=== PATIENT | male | born 1960 | race Caucasian/White ===

== ENCOUNTER → 2019-09-23 12:40 | Outpatient (CLI) | payer OTHER, SELFPAY ==
--- NOTE | 2019-09-23 12:42 | DI.CT.S_ITS ---
PROCEDURE: CT KIDNEY URETER BLADDER (KUB) INDICATIONS: hematuria TECHNIQUE: Noncontrast 5 mm thick sections acquired from the diaphragms to the symphysis. 5 mm thick coronal and sagittal reformats were then performed. For radiation dose reduction, the following was used: automated exposure control, adjustment of mA and/or kV according to patient size. COMPARISON: [facility], CT, KIDNEY/ URETER/BLADDER, 04/01/2015, 16:06. FINDINGS: Image quality: Excellent. Lung bases: Lung bases are clear. Heart size is normal. Urinary system: Both kidneys are normal in size. 2.1 x 0.9 cm stone is seen in right renal collecting system. Additional smaller nonobstructing right renal calculi are seen measures up to 5 mm in size. Nonobstructing left renal calculi are noted measures up to 4 mm in size in midpole of left kidney. No hydronephrosis. No perinephric fat stranding. There is suggestion of 1.8 cm cyst in upper pole of right kidney compared to 1.2 cm in 2016. There is no perinephric fat stranding. Both ureters appear non-dilated throughout their expected courses. There is mild diffuse bladder wall thickening. Enlarged prostate gland with mild mass effect of floor of urinary bladder is noted. No discrete bladder wall mass or calcified bladder stones. Other solid organs: Liver is normal in size. Gallbladder is within normal limits. Pancreas is normal in contours. Spleen is normal in size. No adrenal nodules. Peritoneum and bowel: Unenhanced bowel loops demonstrate normal wall thickness and caliber. No free fluid or air. Appendix is visualized and is within normal limits. Moderate sigmoid diverticulosis is seen, no CT evidence of acute diverticulitis. Nodes and vessels: No retroperitoneal or mesenteric adenopathy by size criteria. Aorta and inferior vena cava are normal in caliber. Abdominal wall: No ventral hernias. Pelvis: No free pelvic fluid. No inguinal hernias or adenopathy. Bones: No suspicious bony lesions. No vertebral body compression fractures. Degenerative disc disease at L3-4 through L5-S1 levels are seen with prominent dorsal disc osteophyte complex formation at L4-5 level causing moderate to severe central canal stenosis. IMPRESSION: 1. Bilateral nonobstructing renal calculi including a 2.1 x 0.9 cm midpole/right renal pelvic stone. No hydronephrosis. Normal appearing bilateral ureters. 2. Suggestion of mild diffuse bladder wall thickening, no discrete bladder wall mass. Enlarged prostate gland with mass effect of floor of urinary bladder. 3. No bowel obstruction. No free fluid or free air. Colonic diverticulosis, no CT evidence of acute diverticulitis. Normal appendix. 4. Degenerative disc disease in lower lumbar spine most prominent at L4-5 level as above. Dictated by: Justin Mtz M.D. on 09/23/2019 at 15:19 Approved by: Justin Mtz M.D. on 09/23/2019 at 15:31
[2019-09-23 15:01] LABS: Prostate Specific Antigen 1.93 ng/mL (0.10-4.00)
== END ==
PROVIDERS: Family Provider Family Medicine; PCP Family Medicine; Referring Provider Family Medicine; Visit Provider Specialist
DX: R31.29 Other microscopic hematuria (principal); N40.1 Benign prostatic hyperplasia with lower urinary tract symptoms; N13.8 Other obstructive and reflux uropathy; N20.0 Calculus of kidney; K57.30 Diverticulosis of large intestine without perforation or abscess without bleeding; M51.36 Other intervertebral disc degeneration, lumbar region
CPT/HCPCS: 36415; 74176; 84153

== ENCOUNTER → 2019-10-01 11:35 | Outpatient (CLI) | payer OTHER, SELFPAY ==
--- NOTE | 2019-10-01 11:37 | DI.RAD.S_ITS ---
PROCEDURE: XR KUB INDICATIONS: Kidney stone TECHNIQUE: One view of the abdomen acquired. COMPARISON: [facility], CT, CT KIDNEY URETER BLADDER (KUB), 09/23/2019, 13:12. FINDINGS: Surgical changes and devices: None. Bowel: Bowel gas pattern is normal. Soft tissues: Several calcifications projected over the right kidney, largest of which measures roughly 2.1 cm projected over the right renal pelvis. There are several small punctate calcifications projected over the left kidney as was seen on prior CT scan. Bones: No suspicious bony lesions. IMPRESSION: Bilateral renal calcifications, largest of which is on the right measuring up to 2.1 cm which appears similar to prior CT scan dated 09/23/2019. Dictated by: Salo Moran RR Interpreted: Tamara Guzmán MD on 10/01/2019 at 16:44 Approved by: Tamara Guzmán M.D. on 10/01/2019 at 18:04
== END ==
PROVIDERS: Family Provider Family Medicine; PCP Family Medicine; Referring Provider Specialist; Visit Provider Specialist
DX: N20.0 Calculus of kidney (principal); N13.5 Crossing vessel and stricture of ureter without hydronephrosis; Z87.442 Personal history of urinary calculi
CPT/HCPCS: 51798; 74018; 81002

== ENCOUNTER → 2019-10-01 14:55 | Outpatient (CLI) | payer OTHER, SELFPAY ==
[2019-10-02 21:07] LABS: COVID19 Sendout Not Detected (Not Detect)
== END ==
PROVIDERS: Family Provider Family Medicine; PCP Family Medicine; Visit Provider Physician Assistant
DX: Z11.59 Encounter for screening for other viral diseases (principal)
CPT/HCPCS: 87635

== ENCOUNTER 2019-10-04 11:10 | Day surgery (SDC) | payer OTHER, SELFPAY ==
[2019-10-01 12:49] VITALS: BMI 24.9
[2019-10-04] VITALS (12 sets, daily range): BP systolic 139–187; BP diastolic 75–103; PULSE 46–76; RESP 10–20; TEMP 36.3–37.1; O2SAT 99–100; BMI 23.8
[2019-10-04] MEDS: LACTATED RINGERS 1,000 ML 42 ML IV ×2 (11:50→17:19)
--- NOTE | 2019-10-04 13:08 | PM.PREOP ---
Pre-operative Note Interval Note History & Physical reviewed/Exam performed by Physician: Yes Changes to H&P: No
[2019-10-04] MEDS: CIPROFLOXACIN 400 MG/200 ML PIGGYBACK 200 MG IV (13:15)
--- NOTE | 2019-10-04 13:35 | SUR.OPER ---
Addendum entered by Jason Torres R.N. 10/04/19 13:36: On ESWL jonny price Original Note: Lithotomy on padded OR bed, head on pillow, arms secured on padded arm boards at <90 degrees abduction. Legs secured in padded yellow fins stirrups.
--- NOTE | 2019-10-04 14:12 | P.OP_ITS ---
Operative Date/Time/Diagnoses Date of procedure: 10/04/19 Time of procedure: 14:12 Pre-op diagnosis: 1. Right nephrolithiasis 2. Right renal colic Post-op diagnosis: same Procedure & Clinicians Procedure: 1. Cystoscopy and placement right ureteral stent (7 Guyanese by 22-32 cm multi-length). 2. Right extracorporeal shockwave lithotripsy (see maximal power level 7.0 x 2500 shocks). Same procedure as scheduled: Yes Indications: 1. Right nephrolithiasis 2. Right renal colic Surgeon: Larry Elizabeth Click Yes if Unassisted: Yes Anesthesia Type: General Operative Notes Findings: Large right renal stone burden as depicted on preoperative imaging. Urethra-normal External sphincter-coapted Prostate-3.5-4 cm length with moderate trilobar hyperplasia Bladder-1+ trabeculation. Normal orifices bilaterally. No stone tumor foreign body visualized. Following instrumentation of the right upper collecting system and obstructive E flux was visualized from the right ureteral orifice. Closure Type: not applicable Specimen(s): none sent Applied: other (Seven Guyanese by 22-32 cm multi-length stent.) Estimated Blood Loss (mL): 0 Blood products transfused: none Tourniquet time (min): 0 Procedure in detail: The patient was positioned supine and was administered general anesthesia. He was then repositioned in the semi lithotomy the lower abdomen genitalia and groin were then prepped and draped in sterile fashion. Twenty-two Guyanese panendoscope was then passed lower urinary tract with the findings as described above. Next, a 0.35 guidewire was advanced of the right upper collecting system under direct and fluoroscopic guidance. Now a 7 Guyanese by 22-32 cm multi-length stent was advanced over the guidewire, again under direct and fluoroscopic guidance. And was positioned satisfactorily in the right collecting system. The above index calculi were localized in the X, Y, and Z planes. Lithotripsy was commenced at minimal power level for total of 200 shocks. A 2 minutes pause was then conducted. Lithotripsy was then resumed and power level was gradually increased to a maximum of 7.0. At conclusion of the treatment there was excellent radiographic evidence of stone fragmentation. The patient was then repositioned supine, awakened, and transferred for to a gurney and transported to recovery room. Complications: none Post-operative Condition: stable Disposition: PACU Plan for aftercare: Home
[2019-10-04] MEDS: FUROSEMIDE 40 MG/4 ML VIAL 20 MG IV (14:36)
[2019-10-04] MEDS: fentaNYL 100 MCG/2 ML INJ IV ×2 (14:42→14:53)
[2019-10-04] MEDS: HYDROCODONE/ACET 5/325 TABLET 1 TAB PO ×2 (14:44→17:13)
--- NOTE | 2019-10-04 15:11 | SUR.PHASEI ---
Patient unable to void lying down (had turned to left side per request of Dr. Elizabeth). Pt denies any dizziness; assisted to standing at bedside with2 RN standby. Continues to attempt to void. States that his pain level is better. He has tolerated PO food and medication well. Alert, oriented, pleasant.
--- NOTE | 2019-10-04 15:22 | SUR.PHASEI ---
Pt states that he has had difficulty starting to void since the onset of kidney stones. States that he'd be able to void if standing in the bathroom. Bladder scanned for 477ml. Dr. Elizabeth informed that we may need too catheterize the patient. Took pt to [facility] to attempt to void. Reported to Chidi Wells RN
--- NOTE | 2019-10-04 15:52 | SUR.PHASEII ---
Patient unable to void after procedure. Straight cath ordered by Dr Elizabeth and if patient is still unable to void after a straight cath procedure, patient will need to go home with an indwelling mayer and leg bag. Patient verbalizes understanding and is in agreement. Patient attempting a second time to void.
--- NOTE | 2019-10-04 16:59 | SUR.PHASEII ---
Urojet given to patient to minimize discomfort prior to straight cath. Straight cath done using sterile technique on one attempt. Tolerated well. Emptied 600 mls of bloody urine to bag without difficulty. No blood clots appreciated. Patient feels better immediately after straight cath procedure. Bladder scan 103 mls after catherization. Advised Dr Elizabeth of post cath residual. Per Dr Elizabeth, allow patient time to void on his own, and if unsuccessful, patient will need to have an indwelling mayer placed that will remain for the weekend until he can be seen in the office next week. Patient and partner verbalizes understanding. Report given to receiving nurse, River Carter
--- NOTE | 2019-10-04 17:06 | SUR.PHASEII ---
Per Dr Elizabeth, infuse remaining Lactated ringers and if patient has 400 mls or greater in his bladder after repeat bladder scan, insert mayer catheter and send patient home with large collection and small leg bag. V/U.
[2019-10-04] MEDS: ONDANSETRON 4 MG/2 ML INJ IV (17:13)
--- NOTE | 2019-10-04 17:50 | SUR.PHASEII ---
Patient up to the bathroom. Unable to void. Bladder scan showed 348mls.
--- NOTE | 2019-10-04 19:15 | SUR.PHASEII ---
IV bag infused. Patient attempted to void again but was unsuccessful. Patient c/o increased bladder discomfort. Bladder scan showed 350mls. Mayer placed per order from Dr. Elizabeth to TERRANCE Barlow and patient discomfort, with sterile technique. Dark, thick red fluid drained from mayer. Mayer teaching and leg bag instructions given verbally and written. Patient expressed desire to discharge.
== END 2019-10-04 19:00 | disposition home or self-care (01) ==
PROVIDERS: PCP Family Medicine; Referring Provider Specialist; Visit Provider Specialist
PROC: (CPT 50590; principal; 2019-10-04 12:45)
DX: N20.0 Calculus of kidney (principal); I10 Essential (primary) hypertension; B20 Human immunodeficiency virus [HIV] disease
CPT/HCPCS: 50590; 52332; J0744; J1940; J2250; J2405; J2704; J3010

== ENCOUNTER → 2019-10-21 11:10 | Outpatient (CLI) | payer OTHER, SELFPAY | PROVIDERS: PCP Family Medicine; Visit Provider Specialist | DX: N39.0 Urinary tract infection, site not specified (principal); Z46.6 Encounter for fitting and adjustment of urinary device; Z48.89 Encounter for other specified surgical aftercare | CPT/HCPCS: 52310; 81002; 87086 ==

== ENCOUNTER → 2019-12-23 09:34 | Outpatient (CLI) | payer OTHER, SELFPAY ==
--- NOTE | 2019-12-23 10:05 | DI.RAD.S_ITS ---
PROCEDURE: XR KUB INDICATIONS: kidney stone TECHNIQUE: One view of the abdomen acquired. COMPARISON: [facility], ABDOMEN ACUTE SERIES, 06/22/2012, 15:08. [facility], CR, XR KUB, 10/01/2019, 11:34. FINDINGS: Surgical changes and devices: None. Bowel: Bowel gas pattern is normal. Soft tissues: No suspicious abdominal calcifications can be seen but the calculus present on the right within the renal pelvis was measured at 255 Hounsfield units, low in radiodensity. Visualized solid organ contours appear normal in size. Bones: No suspicious bony lesions. IMPRESSION: The calculus within the renal pelvis on the right seen by CT scanning 09/23/19 was radiolucent, at approximately 255 Hounsfield units, and therefore the absence of clear visualization of this structure on current plain film imaging does not exclude the possibility of it remaining. Ultrasound may be warranted for more accurate assessment. Dictated by: Raudel Dubois M.D. on 12/23/2019 at 10:56 Approved by: Raudel Dubois M.D. on 12/23/2019 at 10:58
[2019-12-23 10:36] LABS: Appearance Urine UA CLEAR; Bilirubin Urine UA NEGATIVE (NEGATIVE); Color Urine UA YELLOW; Glucose Urine UA NEGATIVE (Negative); Ketones Urine UA NEGATIVE (NEGATIVE); Leukocyte Esterase Urine UA NEGATIVE (NEGATIVE); Nitrite Urine UA NEGATIVE (Negative); Occult Blood Urine UA NEGATIVE (Negative); Protein Urine UA TRACE (Negative); Specific Gravity Urine UA 1.025 (1.000-1.035); Urobilinogen Urine UA 0.2 E.U./dL (0.2); pH Urine UA 5.5 (4.5-8.0)
[2019-12-23 10:54] LABS: Calcium 9.5 mg/dL (8.4-10.2); Uric Acid 4.5 mg/dL (3.5-8.5)
[2019-12-24 14:38] LABS: Parathyroid Hormone Int 34 pg/mL (15-65)
[2019-12-31 14:25] LABS: Stone Analysis Source NOT PROVIDED
[2019-12-31 14:26] LABS: Size 3X3
[2019-12-31 14:27] LABS: Ca oxalate dihydrate 60; Ca oxalate monohydr 35; Hydroxyapatite 5
== END ==
PROVIDERS: PCP Family Medicine; Referring Provider Specialist; Visit Provider Specialist
DX: N20.0 Calculus of kidney (principal); N39.0 Urinary tract infection, site not specified
CPT/HCPCS: 74018; 81003; 82310; 82365; 83970; 84550

== ENCOUNTER → 2020-10-21 09:36 | Outpatient (CLI) | payer OTHER, SELFPAY ==
--- NOTE | 2020-10-21 | DI.CT.S_ITS ---
PROCEDURE: CT ABDOMEN PELVIS WO CON INDICATIONS: Calculus of kidney right flank pain TECHNIQUE: Noncontrast 5 mm thick sections acquired from the diaphragms to the symphysis. 5 mm coronal and sagittal reformats were then performed. For radiation dose reduction, the following was used: automated exposure control, adjustment of mA and/or kV according to patient size. COMPARISON: [facility], CT, CT KIDNEY URETER BLADDER (KUB), 09/23/2019, 13:12. FINDINGS: Image quality: Excellent. ABDOMEN: Lung bases: Lung bases are clear. Heart size is normal. Solid organs: Liver is normal in size. Gallbladder is unremarkable . Pancreas is normal in contours. Spleen is normal in size. No adrenal nodules. Right kidney: Interval removal of a large right renal pelvic stone and right lower pole calyceal stones. Approximately 4 or 5 tiny residual calyceal stones remain. No hydronephrosis. Right ureter: Unremarkable. No ureteral stone. Left kidney: Unchanged. Multiple small nonobstructing stones. No hydronephrosis. Left ureter: No hydroureter. Peritoneum and bowel: Unenhanced bowel loops demonstrate normal wall thickness and caliber. No free fluid or air. Sigmoid diverticulosis. Nodes and vessels: No retroperitoneal or mesenteric adenopathy by size criteria. Aorta and inferior vena cava are normal in caliber. Miscellaneous: No ventral hernias. PELVIS: Genitourinary: Bladder is decompressed. Mild diffuse bladder wall thickening. Prostate enlargement. Miscellaneous: No inguinal hernias or adenopathy. Bones: No suspicious bony lesions. No vertebral body compression fractures. Lumbar degenerative change. Prominent peripherally calcified disc protrusion at L4-L5 with associated canal stenosis. IMPRESSION: 1. Significant interval improvement in the appearance of the right kidney. The large renal pelvic stone and the large lower calyceal stone have been removed. Multiple tiny nonobstructing right renal stones without hydronephrosis. 2. Multiple nonobstructing small left renal stones. 3. Sigmoid diverticulosis. 4. A peripherally calcified disc protrusion at L4-L5 resulting canal stenosis. 5. Mild diffuse bladder wall thickening, enlarged prostate. Dictated by: Ru Rogers M.D. on 10/21/2020 at 12:05 Approved by: Ru Rogers M.D. on 10/21/2020 at 12:11
== END ==
PROVIDERS: PCP Family Medicine; Referring Provider Family Medicine; Visit Provider Family Medicine
DX: N20.0 Calculus of kidney (principal); R10.9 Unspecified abdominal pain; K57.30 Diverticulosis of large intestine without perforation or abscess without bleeding; N40.0 Benign prostatic hyperplasia without lower urinary tract symptoms; M51.26 Other intervertebral disc displacement, lumbar region; M48.061 Spinal stenosis, lumbar region without neurogenic claudication
CPT/HCPCS: 74176

== ENCOUNTER → 2020-11-21 10:56 | Outpatient (CLI) | payer OTHER, SELFPAY ==
--- NOTE | 2020-11-21 10:57 | DI.MRI.S_ITS ---
PROCEDURE: MR LUMBAR SPINE WO CON INDICATIONS: Spinal stenosis, lumbar region with neurogenic cla TECHNIQUE: Noncontrast sagittal T1 spin echo and T2 fast echo, sagittal STIR, axial T1 and T2 fast spin echo through the lumbar spine. In cases with scoliosis, additional coronal T2 fast spin echo may be performed. COMPARISON: None. FINDINGS: Image quality: Excellent. Alignment and Curvature: There is normal bony alignment. Bone Marrow: Marrow is of normal overall signal. Minimal reactive endplate changes are present at L4-5. No acute vertebral body compression fractures. Spinal Cord: Conus medullaris terminates at the L1 level. Visualized cord demonstrates normal signal and size. Paraspinous Soft Tissues: No paravertebral masses. Increased T2 signal is present within the right kidney most consistent with a simple cyst. Discs: Severe desiccation is present L4-5, moderate to severe throughout the remainder of the lumbar spine. L1-L2: No disc bulge, spinal stenosis or foraminal narrowing. L2-L3: Mild disc bulge without spinal stenosis. Minimal to mild left and minimal right foraminal narrowing with facet and ligamentum flavum hypertrophy. L3-L4: Mild disc bulge with mild spinal stenosis. Moderate bilateral foraminal narrowing with facet and ligamentum flavum hypertrophy. L4-L5: Mild disc bulge with large superimposed posterior central protrusion with severe spinal stenosis and canal compression. Severe left and moderate to severe right foraminal narrowing with prominent facet and ligamentum flavum hypertrophy. L5-S1: Mild disc bulge including a right foraminal component. No spinal stenosis. [id number] bilateral foraminal narrowing with facet hypertrophy. IMPRESSION: 1. Disc bulge with large posterior central protrusion at L4-5 causing severe spinal stenosis and canal compression. 2. Multilevel foraminal narrowing most severe at L4-5 secondary to facet and ligamentum flavum arthropathy. Dictated by: Tamara Guzmán M.D. on 11/23/2020 at 11:03 Approved by: Tamara Guzmán M.D. on 11/23/2020 at 11:09
== END ==
PROVIDERS: PCP Family Medicine; Referring Provider Family Medicine; Visit Provider Family Medicine
DX: M48.062 Spinal stenosis, lumbar region with neurogenic claudication (principal); M51.26 Other intervertebral disc displacement, lumbar region
CPT/HCPCS: 72148

== ENCOUNTER → 2021-07-26 08:05 | Outpatient (CLI) | payer OTHER, SELFPAY ==
[2021-07-26 19:27] LABS: Add Manual Diff / Slide Review NO; Basophils Absolute Auto 0 /uL (0-100); Basophils Percent Auto 0.6 % (0-2); Eosinophils Absolute Auto 400 /uL (0-450); Eosinophils Percent Auto 5.4 % (2-4); Hemoglobin 13.7 g/dL (13.5-17.5); Lymphocytes Absolute Auto 2100 /uL (1100-4500); Lymphocytes Percent Auto 30.4 % (25-40); Mean Corpuscular HGB Conc 34.3 % (30-36); Mean Corpuscular Hemoglobin 34.2 PG (26-34); Mean Corpuscular Volume 99.7 fL (80-100); Monocytes Absolute Auto 600 /uL (0-900); Monocytes Percent Auto 8.8 % (3-14); Neutrophils Absolute Auto 3800 /uL (1500-7000); Neutrophils Percent Auto 54.8 % (50-75); Platelet Count 227 X10^3/uL (150-400); Red Blood Cell Count 4.01 X10^6/uL (4.5-5.9); White Blood Cell Count 6.9 X10^3/uL (4.5-11.0)
[2021-07-26 19:35] LABS: Alanine Aminotransferase 13 IU/L (<50); Albumin 4.3 g/dL (3.5-5.0); Albumin Globulin Ratio 1.4 (1.0-2.8); Alkaline Phosphatase 67 U/L (38-126); Aspartate Aminotransferase 20 IU/L (17-59); BUN Creatinine Ratio 25.6 (6-22); Bilirubin Total 0.6 mg/dL (0.2-1.3); Blood Urea Nitrogen 20 mg/dL (9-20); Calcium 9.3 mg/dL (8.4-10.2); Carbon Dioxide 28 mmol/L (22-32); Chloride 102 mmol/L (98-107); Cholesterol 234 mg/dL (140-199); Estimated Glomerular Filt Rate > 60 mL/min (>60); Glucose 119 mg/dL (70-100); HDL Cholesterol 54 mg/dL (40-60); HEMOLYSIS < 15 (0-50); LDL Cholesterol Calculated 154 mg/dL (<100); Potassium 4.3 mmol/L (3.4-5.1); Sodium 138 mmol/L (137-145); Total Protein 7.3 g/dL (6.3-8.2); Triglycerides 128 mg/dL (35-150)
[2021-07-27 16:04] LABS: Absolute CD 4 Helper 697 /uL (359-1519); Eosinophils 5 % (Not Estab.); Eosinophils (Absolute) 0.4 x10E3/uL (0.0-0.4); Hemacrit 25.3 % (37.5-51.0); Hemoglobin 8.8 g/dL (13.0-17.7); Immature Granulocytes 0 % (Not Estab.); Lymphocytes 25 % (Not Estab.); Lymphocytes (Absolute) 1.9 x10E3/uL (0.7-3.1); MCHC 34.6 pg (26.6-33.0); MCHC 34.8 g/dL (31.5-35.7); MCV 100 fL (79-97); Monocytes 10 % (Not Estab.); Monocytes (Absolute) 0.8 x10E3/uL (0.1-0.9); Neutrophils 60 % (Not Estab.); Neutrophils (Absolute) 4.5 x10E3/uL (1.4-7.0); Percent CD 4 Pos Lymph 36.7 % (30.8-58.5); Platelets 315 x10E3/uL (150-450); RDW 12.6 % (11.6-15.4); Red Blood Cells 2.54 x10E6/uL (4.14-5.80); White Blood Cells 7.6 x10E3/uL (3.4-10.8)
[2021-07-29 00:08] LABS: HIV-1 RNA by PCR <40 copies/mL (.)
== END ==
PROVIDERS: PCP Family Medicine; Visit Provider Family Medicine
DX: B20 Human immunodeficiency virus [HIV] disease (principal); I10 Essential (primary) hypertension; K92.1 Melena; M48.061 Spinal stenosis, lumbar region without neurogenic claudication; R00.1 Bradycardia, unspecified
CPT/HCPCS: 80053; 80061; 85025; 86361; 87536

== ENCOUNTER → 2021-07-29 13:43 | Outpatient (CLI) | payer OTHER, SELFPAY ==
[2021-07-29 18:39] LABS: Add Manual Diff / Slide Review NO; Basophils Absolute Auto 0 /uL (0-100); Basophils Percent Auto 0.5 % (0-2); Eosinophils Absolute Auto 300 /uL (0-450); Eosinophils Percent Auto 3.1 % (2-4); Hematocrit 37.6 % (41-53); Hemoglobin 13.1 g/dL (13.5-17.5); Lymphocytes Absolute Auto 2400 /uL (1100-4500); Lymphocytes Percent Auto 28.5 % (25-40); Mean Corpuscular HGB Conc 34.8 % (30-36); Mean Corpuscular Hemoglobin 34.6 PG (26-34); Mean Corpuscular Volume 99.4 fL (80-100); Monocytes Absolute Auto 600 /uL (0-900); Monocytes Percent Auto 7.5 % (3-14); Neutrophils Absolute Auto 5000 /uL (1500-7000); Neutrophils Percent Auto 60.4 % (50-75); Platelet Count 217 X10^3/uL (150-400); Red Blood Cell Count 3.78 X10^6/uL (4.5-5.9); Red Cell Distribution Width 13.4 % (11.6-14.8); White Blood Cell Count 8.3 X10^3/uL (4.5-11.0)
[2021-07-29 18:41] LABS: HEMOLYSIS < 15 (0-50); Iron 78 ug/dL (49-181)
[2021-07-29 18:46] LABS: Alanine Aminotransferase 13 IU/L (<50); Albumin 4.4 g/dL (3.5-5.0); Albumin Globulin Ratio 1.7 (1.0-2.8); Alkaline Phosphatase 67 U/L (38-126); Aspartate Aminotransferase 20 IU/L (17-59); BUN Creatinine Ratio 29.3 (6-22); Bilirubin Total 0.4 mg/dL (0.2-1.3); Blood Urea Nitrogen 29 mg/dL (9-20); Calcium 9.4 mg/dL (8.4-10.2); Carbon Dioxide 29 mmol/L (22-32); Chloride 103 mmol/L (98-107); Estimated Glomerular Filt Rate > 60 mL/min (>60); Globulin 2.6 g/dL (1.7-4.1); Glucose 101 mg/dL (70-100); HEMOLYSIS < 15 (0-50); Sodium 138 mmol/L (137-145)
[2021-07-29 18:53] LABS: Percent Iron Saturation 25 % (20-50); Total Iron Binding Capacity 307 ug/dL (261-462); Transferrin 236 mg/dL (206-381)
[2021-07-29 19:17] LABS: Ferritin 33 ng/mL (18-464)
[2021-07-29 19:31] LABS: Vitamin B12 > 1000 pg/mL (239-931)
== END ==
PROVIDERS: PCP Family Medicine; Visit Provider Family Medicine
DX: D64.9 Anemia, unspecified (principal); K92.1 Melena
CPT/HCPCS: 80053; 82607; 82728; 83540; 83550; 85025

== ENCOUNTER → 2021-09-15 09:26 | Outpatient (CLI) | payer OTHER, SELFPAY ==
[2021-09-15 20:43] LABS: Add Manual Diff / Slide Review NO; Basophils Absolute Auto 0 /uL (0-100); Basophils Percent Auto 0.3 % (0-2); Eosinophils Absolute Auto 300 /uL (0-450); Eosinophils Percent Auto 4.3 % (2-4); Hematocrit 37.9 % (41-53); Hemoglobin 13.1 g/dL (13.5-17.5); Lymphocytes Absolute Auto 2000 /uL (1100-4500); Lymphocytes Percent Auto 27.6 % (25-40); Mean Corpuscular HGB Conc 34.7 % (30-36); Mean Corpuscular Volume 101.1 fL (80-100); Monocytes Absolute Auto 700 /uL (0-900); Monocytes Percent Auto 9.2 % (3-14); Neutrophils Absolute Auto 4100 /uL (1500-7000); Neutrophils Percent Auto 58.6 % (50-75); Platelet Count 181 X10^3/uL (150-400); Red Blood Cell Count 3.75 X10^6/uL (4.5-5.9); Red Cell Distribution Width 13.1 % (11.6-14.8); White Blood Cell Count 7.1 X10^3/uL (4.5-11.0)
[2021-09-15 20:45] LABS: HEMOLYSIS < 15 (0-50); Iron 139 ug/dL (49-181)
[2021-09-15 20:49] LABS: HEMOLYSIS < 15 (0-50); Potassium 4.3 mmol/L (3.4-5.1)
[2021-09-15 20:50] LABS: Alanine Aminotransferase 13 IU/L (<50); Albumin 4.2 g/dL (3.5-5.0); Albumin Globulin Ratio 1.6 (1.0-2.8); Alkaline Phosphatase 65 U/L (38-126); Aspartate Aminotransferase 21 IU/L (17-59); BUN Creatinine Ratio 27.5 (6-22); Bilirubin Total 0.5 mg/dL (0.2-1.3); Blood Urea Nitrogen 22 mg/dL (9-20); Calcium 9.2 mg/dL (8.4-10.2); Carbon Dioxide 31 mmol/L (22-32); Chloride 101 mmol/L (98-107); Cholesterol 249 mg/dL (140-199); Estimated Glomerular Filt Rate > 60 mL/min (>60); Globulin 2.6 g/dL (1.7-4.1); Glucose 106 mg/dL (70-100); HDL Cholesterol 52 mg/dL (40-60); LDL Cholesterol Calculated 167 mg/dL (<100); Sodium 137 mmol/L (137-145); Total Protein 6.8 g/dL (6.3-8.2); Triglycerides 151 mg/dL (35-150)
[2021-09-15 20:58] LABS: Percent Iron Saturation 44 % (20-50); Total Iron Binding Capacity 316 ug/dL (261-462); Transferrin 248 mg/dL (206-381)
== END ==
PROVIDERS: PCP Family Medicine; Visit Provider Family Medicine
DX: D64.9 Anemia, unspecified (principal); E78.2 Mixed hyperlipidemia
CPT/HCPCS: 80053; 80061; 83540; 83550; 85025

== ENCOUNTER → 2021-12-21 11:25 | Outpatient (CLI) | payer OTHER, SELFPAY ==
[2021-12-21 19:37] LABS: Alanine Aminotransferase 15 IU/L (<50); Albumin 4.8 g/dL (3.5-5.0); Albumin Globulin Ratio 1.6 (1.0-2.8); Alkaline Phosphatase 64 U/L (38-126); Aspartate Aminotransferase 19 IU/L (17-59); BUN Creatinine Ratio 33.7 (6-22); Bilirubin Total 0.7 mg/dL (0.2-1.3); Blood Urea Nitrogen 29 mg/dL (9-20); Calcium 9.7 mg/dL (8.4-10.2); Carbon Dioxide 28 mmol/L (22-32); Chloride 100 mmol/L (98-107); Cholesterol 188 mg/dL (140-199); Estimated Glomerular Filt Rate > 60 mL/min (>60); Glucose 116 mg/dL (70-100); HDL Cholesterol 40 mg/dL (40-60); HEMOLYSIS < 15 (0-50); LDL Cholesterol Calculated 123 mg/dL (<100); Potassium 4.8 mmol/L (3.4-5.1); Sodium 138 mmol/L (137-145); Total Protein 7.8 g/dL (6.3-8.2); Triglycerides 126 mg/dL (35-150)
== END ==
PROVIDERS: PCP Family Medicine; Visit Provider Family Medicine
DX: D64.9 Anemia, unspecified (principal); E78.2 Mixed hyperlipidemia; M48.062 Spinal stenosis, lumbar region with neurogenic claudication
CPT/HCPCS: 80053; 80061

== ENCOUNTER → 2022-03-14 09:49 | Outpatient (CLI) | payer OTHER, SELFPAY ==
[2022-03-14 20:23] LABS: Add Manual Diff / Slide Review NO; Basophils Absolute Auto 0 /uL (0-100); Basophils Percent Auto 0.6 % (0-2); Eosinophils Absolute Auto 300 /uL (0-450); Eosinophils Percent Auto 4.3 % (2-4); Hemoglobin 13.9 g/dL (13.5-17.5); Lymphocytes Absolute Auto 1900 /uL (1100-4500); Mean Corpuscular HGB Conc 34.9 % (30-36); Mean Corpuscular Hemoglobin 35.4 PG (26-34); Mean Corpuscular Volume 101.7 fL (80-100); Monocytes Absolute Auto 600 /uL (0-900); Monocytes Percent Auto 8.5 % (3-14); Neutrophils Absolute Auto 4300 /uL (1500-7000); Neutrophils Percent Auto 60.6 % (50-75); Platelet Count 170 X10^3/uL (150-400); Red Blood Cell Count 3.93 X10^6/uL (4.5-5.9); Red Cell Distribution Width 12.4 % (11.6-14.8); White Blood Cell Count 7.1 X10^3/uL (4.5-11.0)
[2022-03-14 20:32] LABS: Alanine Aminotransferase 15 IU/L (<50); Albumin 4.3 g/dL (3.5-5.0); Albumin Globulin Ratio 1.4 (1.0-2.8); Alkaline Phosphatase 72 U/L (38-126); Aspartate Aminotransferase 23 IU/L (17-59); BUN Creatinine Ratio 26.3 (6-22); Bilirubin Total 0.7 mg/dL (0.2-1.3); Blood Urea Nitrogen 21 mg/dL (9-20); Calcium 9.7 mg/dL (8.4-10.2); Carbon Dioxide 29 mmol/L (22-32); Chloride 98 mmol/L (98-107); Estimated Glomerular Filt Rate > 60 mL/min (>60); Globulin 3.1 g/dL (1.7-4.1); Glucose 108 mg/dL (70-100); HEMOLYSIS 19 (0-50); Hemoglobin A1C% w Est Avg Glu 5.4 % (4.0-6.0); Potassium 5.1 mmol/L (3.4-5.1); Sodium 136 mmol/L (137-145); Total Protein 7.4 g/dL (6.3-8.2)
[2022-03-14 22:47] LABS: HEMOLYSIS < 15 (0-50); Iron 144 ug/dL (49-181)
[2022-03-14 22:55] LABS: Transferrin 259 mg/dL (206-381)
[2022-03-16 14:58] LABS: Percent Iron Saturation 43 % (20-50); Total Iron Binding Capacity 337 ug/dL (261-462)
== END ==
PROVIDERS: PCP Family Medicine; Visit Provider Family Medicine
DX: D64.9 Anemia, unspecified (principal); E78.2 Mixed hyperlipidemia; R73.9 Hyperglycemia, unspecified
CPT/HCPCS: 80053; 83036; 83540; 83550; 85025

== ENCOUNTER → 2022-12-13 11:11 | Outpatient (CLI) | payer OTHER, SELFPAY ==
[2022-12-13 19:15] LABS: Add Manual Diff / Slide Review NO; Basophils Absolute Auto 0 /uL (0-100); Basophils Percent Auto 0.6 % (0-2); Eosinophils Absolute Auto 200 /uL (0-450); Eosinophils Percent Auto 2.6 % (2-4); Hematocrit 39.5 % (41-53); Hemoglobin 13.6 g/dL (13.5-17.5); Lymphocytes Absolute Auto 1700 /uL (1100-4500); Lymphocytes Percent Auto 23.9 % (25-40); Mean Corpuscular HGB Conc 34.5 % (30-36); Mean Corpuscular Hemoglobin 34.3 PG (26-34); Mean Corpuscular Volume 99.4 fL (80-100); Monocytes Absolute Auto 500 /uL (0-900); Monocytes Percent Auto 7.6 % (3-14); Neutrophils Absolute Auto 4600 /uL (1500-7000); Neutrophils Percent Auto 65.3 % (50-75); Platelet Count 198 X10^3/uL (150-400); Red Blood Cell Count 3.97 X10^6/uL (4.5-5.9); Red Cell Distribution Width 12.3 % (11.6-14.8); White Blood Cell Count 7.1 X10^3/uL (4.5-11.0)
[2022-12-13 19:24] LABS: Alanine Aminotransferase 18 IU/L (<50); Albumin 4.2 g/dL (3.5-5.0); Albumin Globulin Ratio 1.4 (1.0-2.8); Alkaline Phosphatase 61 U/L (38-126); Aspartate Aminotransferase 21 IU/L (17-59); BUN Creatinine Ratio 28.2 (6-22); Bilirubin Total 0.5 mg/dL (0.2-1.3); Blood Urea Nitrogen 22 mg/dL (9-20); Calcium 9.5 mg/dL (8.4-10.2); Carbon Dioxide 32 mmol/L (22-32); Chloride 99 mmol/L (98-107); Estimated Glomerular Filt Rate > 60 mL/min (>60); Glucose 104 mg/dL (80-110); HEMOLYSIS < 15 (0-50); Potassium 4.9 mmol/L (3.4-5.1); Sodium 138 mmol/L (137-145); Total Protein 7.2 g/dL (6.3-8.2)
[2022-12-13 19:26] LABS: Hemoglobin A1C% w Est Avg Glu 5.2 % (4.0-6.0)
[2022-12-13 19:55] LABS: TSH w/ Reflex to FT4 0.67 uIU/mL (0.47-4.68)
[2022-12-15 15:39] LABS: HIV 1 & 2 Ab/Ag 4th Gen Combo REACTIVE (NEGATIVE)
[2022-12-15 18:38] LABS: Absolute CD 4 Helper 644 /uL (359-1519); Eosinophils 2 % (Not Estab.); Eosinophils (Absolute) 0.1 x10E3/uL (0.0-0.4); Hemacrit 41.9 % (37.5-51.0); Hemoglobin 13.8 g/dL (13.0-17.7); Immature Granulocytes 1 % (Not Estab.); Lymphocytes 26 % (Not Estab.); Lymphocytes (Absolute) 1.9 x10E3/uL (0.7-3.1); MCHC 32.9 g/dL (31.5-35.7); MCHC 33.7 pg (26.6-33.0); MCV 102 fL (79-97); Monocytes 8 % (Not Estab.); Monocytes (Absolute) 0.6 x10E3/uL (0.1-0.9); Neutrophils 63 % (Not Estab.); Neutrophils (Absolute) 4.7 x10E3/uL (1.4-7.0); Percent CD 4 Pos Lymph 33.9 % (30.8-58.5); Platelets 209 x10E3/uL (150-450); RDW 11.4 % (11.6-15.4); White Blood Cells 7.4 x10E3/uL (3.4-10.8)
[2022-12-20 05:12] LABS: HIV 1 RNA Non Reactive (Non Reactive); HIV 2 RNA Non Reactive (Non Reactive)
== END ==
PROVIDERS: PCP Family Medicine; Visit Provider Family Medicine
DX: B20 Human immunodeficiency virus [HIV] disease (principal); D64.9 Anemia, unspecified; R73.03 Prediabetes
CPT/HCPCS: 80053; 83036; 84443; 85025; 86361; 87389; 87535; 87538

== ENCOUNTER → 2023-07-06 | Outpatient (CLI) | payer OTHER, SELFPAY ==
--- NOTE | 2023-07-06 09:41 | DI.ECHO.S_ITS ---
[facility] : : [address] : : [place] : : [id number] : : Phone: [phone] Echocardiogram Report + + :Name: UNIQUE HARPER Study Date: 07/06/2023 Height: 68 in : :[facility] ReadingLocation: Weight: 155 lb : : Gender: Male BSA: 1.8 m2 : :: 1960 Age: 62 yrs BP: 138/81 mmHg: :Reason For Study: CHEST PAIN : :Ordering Physician: PADMINI, : :VENICE Moreno Performed By: Poonam Koenig : :Referring: VENICE RESENDIZ : + + Interpretation Summary The patient was in sinus bradycardia with heart rates between 52-56 bpm during the exam. The ejection fraction is estimated to be 55-60%. Diastolic parameters suggest probable normal left ventricular diastolic function and normal filling pressures. The right ventricle is normal in size and function. There is mild aortic regurgitation. Pulmonary artery pressures cannot be estimated because of the lack of a measurable TR jet velocity but the IVC suggests a CVP of around 3 mmHg. Procedure: A two-dimensional transthoracic echocardiogram with color flow and Doppler was performed. The study quality was technically adequate. There is no prior echocardiogram noted for this patient. The patient was in sinus bradycardia with heart rates between 52-56 bpm during the exam. Left Ventricle: The left ventricle is normal in size and wall thickness. The ejection fraction is estimated to be 55-60%. Diastolic parameters suggest probable normal left ventricular diastolic function and normal filling pressures. Right Ventricle: The right ventricle is normal in size and function. Atria: The left atrial size is normal. Right atrial size is normal. Mitral Valve: The mitral valve is normal in structure and function. There is trace mitral regurgitation. Aortic Valve: The aortic valve is trileaflet. The aortic valve is mildly calcified. There is no aortic valve stenosis. There is mild aortic regurgitation. Tricuspid Valve: The tricuspid valve is normal in structure and function. There is trace tricuspid regurgitation. Pulmonary artery pressures cannot be estimated because of the lack of a measurable TR jet velocity but the IVC suggests a CVP of around 3 mmHg. Pulmonic Valve: The pulmonic valve is not well visualized. There is trace pulmonic regurgitation. Great Vessels: The aortic root is normal size. The ascending aorta could not be visualized. The IVC is of normal diameter and collapses greater than 50% with a sniff. This suggests a low right atrial pressure of 3 mm Hg. Pericardium/ Pleura There is no pericardial effusion. There is no pleural effusion. MMode/2D Measurements & Calculations LVIDd: 5.3 cm LVOT diam: 2.0 cm LVIDs: 3.6 cm Ao root diam: 3.4 cm FS: 32.0 % Ao Arch Diam (Prox Trans): 2.8 cm IVSd: 0.74 cm LVPWd: 0.74 cm LV deshpande. diameter/BSA (cm/m^2): 2.9 LV sys. diameter/BSA (cm/m^2): 2.0 LA A2 area: 21.2 cm2 RA long axis: 4.8 cm LA A4 area: 15.6 cm2 RA area: 15.1 cm2 LA length (vol): 5.4 cm RA vol: 40.7 ml LA vol: 51.3 ml RA : 22.2 ml/m2 LA vol index: 28.0 ml/m2 IVC diam: 1.9 cm RVD1 (basal): 4.1 cm RVD2 (mid): 2.6 cm TAPSE: 2.5 cm Doppler Measurements & Calculations Ao V2 max: 152.9 cm/sec LVOT Max Hayder: 114.1 cm/sec Ao V2 mean: 108.9 cm/sec LV V1 max P.2 mmHg Ao max P.3 mmHg LV V1 VTI: 25.4 cm Ao mean P.2 mmHg MUSTAPHA(I,D): 2.2 cm2 Ao V2 VTI: 34.8 cm MUSTAPHA(V,D): 2.3 cm2 sev ratio: 0.73 MUSTAPHA indexed to BSA (cm^2/m^2): 1.2 MV E max hayder: 76.6 cm/sec TR max hayder: 239.0 cm/sec MV A max hayder: 55.9 cm/sec TR max P.9 mmHg MV E/A: 1.4 PA V2 max: 96.0 cm/sec Med Peak E' Hayder: 8.1 cm/sec PA V2 mean: 72.1 cm/sec E/E' med: 9.5 PA mean P.2 mmHg Lat Peak E' Hayder: 14.2 cm/sec PA pr(Accel): 25.9 mmHg E/E' lat: 5.4 E/e' average: 7.4 MV dec time: 0.25 sec SV(LVOT): 76.8 ml Reading Physician:02:13 PM
--- NOTE | 2023-07-06 21:37 | DI.NM.S_ITS ---
DATE OF SERVICE: 07/06/2023 PROCEDURE: Pharmacological perfusion study. RADIOPHARMACEUTICAL: 25.7 millicuries technetium-99m Myoview IV was injected at stress and 12.1 millicuries technetium-99m Myoview IV was injected at rest. CARDIAC STRESS: Initially, patient attempted walking on treadmill. He walked on Skip protocol for about 6 minutes and 50 seconds, however, had significant shortness of breath and lightheadedness. Could not walk further. NICOLLE positive 19%. Achieved 78% of target heart rate. Resting blood pressure 138/70 and peak blood pressure 160/92 mmHg. Baseline rhythm sinus. During stress, no convincing ischemic changes seen. Hence test was converted to pharmacological stress test. The patient received IV Lexiscan as per protocol. With Lexiscan, no chest discomfort. Had moderate shortness of breath. No significant ischemic changes or arrhythmias. RAW DATA: Increased subdiaphragmatic activity. GATED STUDY: Stress LV ejection fraction 68% without any obvious wall motion abnormalities. Resting end-diastolic volume 103 mL. TID ratio 0.98, which is within normal limits. Lung/heart ratio 0.38 which is within normal limits. MYOCARDIAL PERFUSION SCAN: Stress supine, resting supine and stress prone images were compared to each other. Stress supine images revealed moderate-sized, moderately decreased perfusion of inferior wall extending into the inferior apex. Resting supine images revealed small size, mildly decreased perfusion of inferior wall and inferior apex. During stress prone images, significant improvement in inferior wall and inferior apical defect suggestive of tissue attenuation artifact. No convincing ischemia or infarction. CONCLUSION: I will call this study likely a normal myocardial perfusion and with evidence of diaphragmatic tissue attenuation artifact, which got improved during stress prone images. The stress prone images did not reveal any significant ischemia or infarction pattern. Poor exercise tolerance. NICOLLE positive 19%. Had significant shortness of breath and lightheadedness, hence could not walk further. Tolerated Lexiscan. No convincing ischemic EKG changes. Overall, left ventricular function is preserved. Correlate clinically. Consider pulmonary workup to rule out pulmonary etiology, like chronic obstructive pulmonary disease, etc. Joselo Garland - CHANDRIKA/fn/ doc#: [id number]/job#: [id number] dd: 07/06/2023 16:45:00 dt: 07/06/2023 20:25:00 DICTATING MD/COPIES TO: Torito Mariee MD COPIES MNE: DARLENE;
== END ==
PROVIDERS: PCP Family Medicine; Referring Provider Internal Medicine Cardiovascular Disease; Visit Provider Internal Medicine Cardiovascular Disease
DX: I35.1 Nonrheumatic aortic (valve) insufficiency (principal); R07.9 Chest pain, unspecified; R06.02 Shortness of breath
CPT/HCPCS: 78452; 93017; 93306; A9502; J2785

== ENCOUNTER → 2024-06-25 16:37 | Outpatient (CLI) | payer BC, SELFPAY ==
--- NOTE | 2024-06-25 16:39 | DI.RAD.S_ITS ---
PROCEDURE: XR CHEST 2V INDICATIONS: cough and fever TECHNIQUE: 2 views of the chest were acquired. COMPARISON: None. FINDINGS: Surgical changes and devices: None. Lungs and pleura: Lungs are clear. No pleural effusions or pneumothorax. Mediastinum: Mediastinal contours are normal. Heart size is normal. Bones and chest wall: No suspicious bony abnormalities. Soft tissues appear unremarkable. IMPRESSION: No acute cardiopulmonary pathology. Dictated by: Justin Mtz M.D. on 06/25/2024 at 16:53 Approved by: Justin Mtz M.D. on 06/25/2024 at 16:56
== END ==
PROVIDERS: PCP Family Medicine; Referring Provider Family Medicine; Visit Provider Family Medicine
DX: R05.9 Cough, unspecified (principal); R50.9 Fever, unspecified; B20 Human immunodeficiency virus [HIV] disease
CPT/HCPCS: 71046